=== PATIENT | female | born 1990 | race Caucasian/White ===

== ENCOUNTER 2021-03-15 22:02 | Emergency (ER) | payer MEDICAID ==
[~2021-03-15] VITALS: Ht 160 cm; Wt 82.0 kg
[2021-03-15] MEDS ORDERED: ONDANSETRON HCL 4MG/2ML INJ IV ONE (23:00)
[2021-03-15] MEDS ORDERED: SODIUM CHLORIDE 0.9% 1,000 ML IV ONE (23:00)
[2021-03-15 23:07] VITALS: BP 145/78
[2021-03-15 23:21] LABS: CLARITY URINE CLOUDY (CLEAR); COLOR URINE YELLOW (YELLOW); KETONES URINE TRACE (NEGATIVE); LEUKOCYTE ESTERASE URINE 1+ (NEGATIVE); NITRITE URINE POSITIVE (NEGATIVE); OCCULT BLOOD URINE NEGATIVE (NEGATIVE); PROTEIN URINE NEGATIVE (NEGATIVE); SPECIFIC GRAVITY URINE 1.026 (1.005-1.030)
[2021-03-15 23:28] LABS: *AMPHETAMINES SCREEN URINE NEGATIVE (NEGATIVE); *BARBITURATES SCREEN URINE NEGATIVE (NEGATIVE)
[2021-03-15 23:29] LABS: *BENZODIAZEPINES SCREEN URINE NEGATIVE (NEGATIVE); *COCAINE SCREEN URINE NEGATIVE (NEGATIVE); CANNABINOID URINE SCREEN NEGATIVE (NEGATIVE); METHADONE URINE SCREEN NEGATIVE (NEGATIVE); OPIATES URINE SCREEN NEGATIVE (NEGATIVE); PHENCYCLIDINE URINE SCREEN NEGATIVE (NEGATIVE)
[2021-03-15 23:50] LABS: HEMATOCRIT. 35.8 % (36.0-48.0); HEMOGLOBIN. 11.7 g/dL (12.0-16.0); LYMPHOCYTES % 30.3 % (20.0-50.0); MEAN CORPUSCULAR HEMOGLOBIN 26.3 pg (28.0-32.0); MEAN CORPUSCULAR VOLUME 80.7 fL (81.0-99.0); MEAN PLATELET VOLUME 7.5 fl (7.4-10.4); MONOCYTES % 7.9 % (2.0-8.0); NEUTROPHILS % 61.8 % (40.0-76.0); PLATELET 409 x1000/uL (130-400); RED BLOOD CELL COUNT 4.43 mill/uL (4.2-5.4); RED CELL DISTRIBUTION WIDTH 15.7 % (11.6-14.6)
[2021-03-15 23:55] LABS: CHLORIDE 105 mEq/L (98-107)
[2021-03-15 23:58] LABS: HCG SCREEN NEGATIVE
[2021-03-16] LABS: ETHANOL BLOOD < 10 mg/dL
[2021-03-16] MEDS ORDERED: CEFTRIAXONE 1 G PREMIX 50 ML IV ONE (00:45)
[2021-03-16] MEDS ORDERED: CEPH500T MT (01:02)
[2021-03-17] MEDS ORDERED: DOCU-138 MT (03:59)
== END 2021-03-16 01:16 | disposition home or self-care (01) ==
LOC: ER 22:02
DX: R11.0 Nausea (principal); R42 Dizziness and giddiness; N12 Tubulo-interstitial nephritis, not specified as acute or chronic; F20.0 Paranoid schizophrenia
CPT/HCPCS: 36415; 80053; 80305; 80320; 81003; 81025; 84703; 85025; 93005; 96361; 96365; 96375; 99284; J0696; J2405; J7030; G0480

== ENCOUNTER 2021-03-17 03:15 | Emergency (ER) | payer MEDICAID ==
[~2021-03-17] VITALS: Ht 160 cm; Wt 82.0 kg
[~2021-03-17 03:15] MED LIST: CEPH500T MT
[2021-03-17] MEDS ORDERED: QUETIAPINE FUMARATE 25MG TABLET PO ONE (03:45)
[2021-03-17 03:50] VITALS: BP 135/72
[2021-03-17] MEDS ORDERED: DOCU-138 MT (03:59)
== END 2021-03-17 04:32 | disposition home or self-care (01) ==
LOC: ER 03:15
DX: R44.0 Auditory hallucinations (principal); Z86.59 Personal history of other mental and behavioral disorders
CPT/HCPCS: 99283

== ENCOUNTER 2021-03-18 23:27 | Emergency (ER) | payer MEDICAID ==
[~2021-03-18 23:27] MED LIST changes: +DOCU-138 MT
== END 2021-03-19 01:02 | disposition left against medical advice (07) ==
LOC: ER 23:27
DX: Z53.21 Procedure and treatment not carried out due to patient leaving prior to being seen by health care provider (principal)